=== PATIENT | female | born 1960 | race Caucasian/White ===

== ENCOUNTER 2021-11-11 10:06 | Day surgery (SDC) | payer OTHER ==
[~2021-11-11] VITALS: Ht 157.5 cm; Wt 60.5 kg
[~2021-11-11 10:06] MED LIST: LISI-892 PO; METH10 PO; SODIUM CHLORIDE 0.9% 1,000 ML ONE
[2021-11-11 10:41] LABS: COVID AG,FIA SOURCE NASAL SWAB
[2021-11-11] MEDS ORDERED: SODIUM CHLORIDE 0.9% 1,000 ML IV ONE (11:30)
[2021-11-11] MEDS ORDERED: LIDOCAINE/PF 2% 5 ML VIAL IM ONE (12:00)
[2021-11-11] MEDS ORDERED: PROPOFOL 1% 20 ML VIAL IVP ONE (12:00)
== END 2021-11-11 14:00 | disposition home or self-care (01) ==
LOC: SURGERY 10:06
PROVIDERS: ATTEND Internal Medicine Gastroenterology
DX: Z12.11 Encounter for screening for malignant neoplasm of colon (principal); D12.0 Benign neoplasm of cecum; K64.1 Second degree hemorrhoids; F17.210 Nicotine dependence, cigarettes, uncomplicated; Z98.890 Other specified postprocedural states; I10 Essential (primary) hypertension; Z79.899 Other long term (current) drug therapy
CPT/HCPCS: 45385; 87426; 88305; C1769; J2704; J3490; J7030; C9803